=== PATIENT | female | born 1975 | race Caucasian/White ===

== ENCOUNTER → 2016-08-04 | Outpatient (CLI) | payer BC ==
--- NOTE | 2016-08-05 02:50 | REP ---
Clinical: Abnormal uterine bleeding . Technique: Transabdominal pelvic ultrasound followed by transvaginal examination for better evaluation of the endometrium and adnexa with color Doppler evaluation of the ovaries. Findings: Bladder is unremarkable and measures 9.6 x 9.38 x 14.8 cm. Normal anteverted uterus measures 10.3 x 5.4 x 6.1 cm and demonstrates few Nabothian cysts in the lower uterine segment/cervix measuring up to 11 mm. The endometrial complex measures 5.9 mm thickness. No discrete uterine or endometrial abnormalities are appreciated. Bilateral ovaries are normal in appearance and vascularity without evidence for torsion. Right ovary measures 3.3 x 2.8 x 2.0 cm ; R I = 0.56 . Left ovary measures 2.0 x 1.6 x 1.3 cm ; R I = 0.58 . Trace pelvic fluid likely physiologic. No adnexal mass lesion. Impression: 1. Anteverted uterus with few Nabothian cysts. 2. Normal bilateral ovaries without evidence for torsion. 3. No significant abnormality identified. Signed by Valdez Razo MD 08/05/2016 02:41 A
== END ==
LOC: M SMT 09:41
PROVIDERS: ATTEND Advanced Practice Midwife
DX: N92.6 Irregular menstruation, unspecified (principal)

== ENCOUNTER → 2017-06-10 | Outpatient (CLI) | payer BC, MEDICAID | LOC: M SMT 09:16 | PROVIDERS: ATTEND Advanced Practice Midwife | DX: Z11.3 Encounter for screening for infections with a predominantly sexual mode of transmission (principal) ==

== ENCOUNTER → 2017-07-29 | Outpatient (REF) | payer MEDICAID ==
[2017-07-29 14:34] LABS: CONTROL LINE HCG INT CTR LINE PRESENT; HCG, SERUM QUALITATIVE NEGATIVE (NEGATIVE)
== END ==
LOC: M LABSMT 13:42
DX: N91.1 Secondary amenorrhea (principal)

== ENCOUNTER → 2017-09-30 | Outpatient (CLI) | payer OTHER ==
[2017-09-30 14:21] LABS: IMMUNOGLOBULIN G 929 MG/DL (681-1648); IMMUNOGLOBULIN M 112 MG/DL (40-230); RHEUMATOID FACTOR QUANT < 10.0 IU/ML (<15.0)
[2017-09-30 14:22] LABS: TOTAL 25(OH) VITAMIN D 14.3 NG/ML (30.0-100.0)
== END ==
LOC: M SMT 10:50
DX: K21.9 Gastro-esophageal reflux disease without esophagitis (principal); D84.9 Immunodeficiency, unspecified; R53.82 Chronic fatigue, unspecified
CPT/HCPCS: 82784

== ENCOUNTER → 2017-10-10 | Outpatient (CLI) | payer OTHER | LOC: M WUC 10:31 | DX: R05 Cough (principal); Z95.0 Presence of cardiac pacemaker | CPT/HCPCS: 71046 ==

== ENCOUNTER → 2018-01-25 | Outpatient (REF) | payer MEDICAID ==
[2018-01-25 15:09] LABS: CHLAMYDIA DNA AMPLIFICATION NEGATIVE (NEGATIVE); GC DNA AMPLIFICATION NEGATIVE (NEGATIVE)
== END ==
LOC: M LAB REF 13:17
DX: R30.0 Dysuria (principal)

== ENCOUNTER → 2018-02-20 | Outpatient (REF) | payer OTHER ==
[2018-02-20 22:14] LABS: CHLAMYDIA DNA AMPLIFICATION NEGATIVE (NEGATIVE); GC DNA AMPLIFICATION NEGATIVE (NEGATIVE)
[2018-02-23 14:16] LABS: HPV HYBRID CAPTURE II Negative (Negative)
== END ==
LOC: M LAB REF 17:11
DX: Z01.419 Encounter for gynecological examination (general) (routine) without abnormal findings (principal); Z11.3 Encounter for screening for infections with a predominantly sexual mode of transmission; Z11.51 Encounter for screening for human papillomavirus (HPV); R87.610 Atypical squamous cells of undetermined significance on cytologic smear of cervix (ASC-US)
CPT/HCPCS: 87591

== ENCOUNTER → 2019-05-03 | Outpatient (REF) | payer OTHER ==
[2019-05-05 15:57] LABS: HPV HYBRID CAPTURE II Negative (Negative)
== END ==
LOC: M LAB REF 18:13
PROVIDERS: ATTEND Advanced Practice Midwife
DX: Z12.4 Encounter for screening for malignant neoplasm of cervix (principal)

== ENCOUNTER → 2020-01-02 | Outpatient (CLI) | payer OTHER ==
[~2020-01-02] MED LIST: ATEN25TA; BACL10TA2; DICL75TA; HYDR-643; HYDR200T3; HYDR25TAB; LEVO200T4; POTA10TA17; SERT-138; TRAZ1TAB11
[2020-01-02 15:00] LABS: HCG, SERUM QUALITATIVE NEGATIVE (NEGATIVE)
[2020-01-02 20:58] LABS: CHLAMYDIA DNA AMPLIFICATION NEGATIVE (NEGATIVE); GC DNA AMPLIFICATION NEGATIVE (NEGATIVE)
== END ==
LOC: M PLALAB 09:05
PROVIDERS: ATTEND Advanced Practice Midwife
DX: T83.9XXA Unspecified complication of genitourinary prosthetic device, implant and graft, initial encounter (principal); Y76.2 Prosthetic and other implants, materials and accessory obstetric and gynecological devices associated with adverse incidents; Z15.09 Genetic susceptibility to other malignant neoplasm

== ENCOUNTER → 2020-01-07 | Outpatient (CLI) | payer OTHER ==
--- NOTE | 2020-01-07 10:55 | REPMRS ---
Patient History The patient states she had a clinical breast exam in 04/28.Family history of breast cancer at age 57 in mother, breast cancer at age 60 in maternal aunt, breast cancer at age 55 in paternal aunt. Taking hormonal contraceptives for 2 years. Digital Woman Screen Mammo: January 07, 2020 - Exam #: [id number] Bilateral CC and MLO view(s) were taken. Technologist: Grazyna Diamond, Technologist No prior studies available for comparison. FINDINGS: The breast tissue is almost entirely fat. The Volpara volumetric breast density category is: A. There is no evidence of dominant mass, architectural distortion, or grouped microcalcification typical of malignancy. 3-D tomosynthesis shows no additional findings. Assessment: BI-RADS/ACR category 1 mammogram. Negative Mammogram. Recommendation Breast MRI of both breasts in 6 months. Routine screening mammogram of both breasts in 1 year (for women over age 40). This patient's Lifetime Breast Cancer RIsk is estimated at 34.8 %. Annual screening Breast MRI scanniing is recommended for patient's whose lifetime risk assessment is over 20%. This mammogram was interpreted with the aid of an FDA-approved computer-aided dectection system. Electronically Signed By: Yariel Manrique MD 01/07/20 [id number]
== END ==
LOC: M WHC 09:46
PROVIDERS: ATTEND Advanced Practice Midwife
DX: Z12.31 Encounter for screening mammogram for malignant neoplasm of breast (principal)

== ENCOUNTER 2020-04-15 12:24 | Emergency (ER) | payer OTHER ==
[~2020-04-15] VITALS: Ht 177.8 cm; Wt 153.8 kg
[2020-04-15] MEDS ORDERED: LEVO200T4 (12:31)
[2020-04-15] MEDS ORDERED: TRAZ1TAB11 (12:31)
[2020-04-15] MEDS ORDERED: BACL10TA2 (12:31)
[2020-04-15] MEDS ORDERED: POTA10TA17 (12:31)
[2020-04-15] MEDS ORDERED: HYDR200T3 (12:31)
[2020-04-15] MEDS ORDERED: SERT-138 (12:31)
[2020-04-15] MEDS ORDERED: HYDR25TAB (12:31)
[2020-04-15] MEDS ORDERED: DICL75TA (12:31)
[2020-04-15] MEDS ORDERED: ATEN25TA (12:31)
[2020-04-15] MEDS ORDERED: HYDR-643 (12:31)
--- NOTE | 2020-04-15 13:05 | REPVR ---
PROCEDURE INFORMATION: Exam: XR Chest, 1 View Exam date and time: 04/15/2020 12:51 PM Age: 44 years old Clinical indication: Chest pain; Type not specified TECHNIQUE: Imaging protocol: XR of the chest Views: 1 view. COMPARISON: [place] CHEST 2 VIEW 10/10/2017 9:41 AM FINDINGS: Tubes, catheters and devices: Dual lead cardiac pacemaker. Lungs: Unremarkable. No consolidation. Pleural space: Unremarkable. No pleural effusion. No pneumothorax. Heart/Mediastinum: Cardiac silhouette is upper normal in size. Bones/joints: Unremarkable. Intraperitoneal space: Left upper quadrant surgical clips. IMPRESSION: No acute cardiopulmonary abnormality. Electronically signed by: Meredith Cabezas On 04/15/2020 13:05:38 PM
[2020-04-15 13:13] LABS: BASO % 0.5 % (0.0-1.0); EOS # 0.1 10^3/uL (0.0-0.5); EOS % 0.9 % (0.0-3.0); HEMATOCRIT 43.3 % (36.0-47.0); HEMOGLOBIN 14.1 g/dl (12.0-15.5); LYMPH # 2.3 10^3/uL (1.5-5.0); LYMPH % 29.4 % (24.0-44.0); MEAN CORPUSCULAR HEMOGLOBIN 29.2 pg (27.0-33.0); MEAN CORPUSCULAR HGB CONC 32.6 g/dl (32.0-36.5); MEAN CORPUSCULAR VOLUME 89.6 fl (80.0-96.0); MONO # 0.5 10^3/uL (0.0-0.8); MONO % 5.8 % (0.0-5.0); NEUTROPHILS % 63.3 % (36.0-66.0); PLATELET COUNT, AUTOMATED 218 10^3/uL (150-450); RED BLOOD COUNT 4.83 10^6/uL (4.00-5.40); WHITE BLOOD COUNT 7.9 10^3/uL (4.0-10.0)
[2020-04-15 13:33] LABS: INR 0.95; PROTHROMBIN TIME 12.9 SECONDS (12.5-14.3)
[2020-04-15 14:00] VITALS: BP 103/65
--- NOTE | 2020-04-16 08:26 | ECGEPIP ---
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
== END 2020-04-15 14:15 | disposition home or self-care (01) ==
LOC: M ED 12:24
DX: R00.2 Palpitations (principal); I11.9 Hypertensive heart disease without heart failure; Z98.84 Bariatric surgery status; Z95.5 Presence of coronary angioplasty implant and graft